=== PATIENT | male | born 1945 | race Caucasian/White ===

== ENCOUNTER → 2024-01-05 | Outpatient (CLI) | payer MEDICARE, BC ==
--- NOTE | 2024-01-05 13:13 | CT ---
EXAMINATION TYPE: CT right knee - [facility] Protocol CT DLP: 844 mGycm, Automated exposure control for dose reduction was used. DATE OF EXAM: 01/05/2024 12:44 PM COMPARISON: None CLINICAL INDICATION:Male, 78 years old with history of M17.11 UNILATERAL PRIMARY OSTEOARTHRITIS, RIGH T KN; PHH, BOB RT knee, primary osteoarthritis. TECHNIQUE: Axial images were obtained of the CT right knee - [facility] Protocol, Additional coronal and sa gittal reformatted images and soft tissue and bone window were obtained for review. . Contrast used: mL of , (None if empty) Oral contrast used: (None if empty) FINDINGS: The visualized portion of the hips demonstrate mild osteoarthrosis changes with osteophyte formation of the acetabulum. No acute intrapelvic process. The bony structures of the pelvis are inta ct. The visualized knee demonstrates osteophyte formation of the tibial plateau, the patella and femoral condyles. There is joint space narrowing and subchondral sclerosis within the medial knee. No eviden ce of fracture. Visualized ankle demonstrates multifocal osteoarthrosis changes with osteophyte formation and mild mundo int space narrowing. No evidence of fractures. IMPRESSION: End-stage osteoarthrosis changes of the medial right knee .
== END | disposition home or self-care (01) ==
LOC: RADCTMAIN 11:24
PROVIDERS: ATTEND Orthopaedic Surgery
DX: M17.11 Unilateral primary osteoarthritis, right knee (principal)

== ENCOUNTER 2024-01-20 14:20 | Inpatient (IN) | payer MEDICARE, BC ==
[2024-01-15 15:10] VITALS: BMI 35.9
[2024-01-20] MEDS: MIDAZOLAM 2 MG/2 ML VIAL IVP ONE (13:41)
[~2024-01-20 14:20] MED LIST: ONDANSETRON 4 MG/2 ML VIAL IVP PRN; TRANEXAMIC 1,000 MG/100ML-NACL 1,000 MG in SALINE 1 100ML.BAG IV PRN; TRANEXAMIC 1,000 MG/100ML-NACL 1,000 MG in SALINE 1 100ML.BAG IVPB PRN
[2024-01-20] MEDS ORDERED: fentaNYL (PF) 50 MCG/ML 2 ML AMP IVP PRN (14:31)
[2024-01-20] MEDS ORDERED: MIDAZOLAM 2 MG/2 ML VIAL IV PRN (14:31)
[2024-01-20] MEDS ORDERED: LIDOCAINE 1% (10MG/ML) FOR IV START INTRADERMA PRN (14:31)
[2024-01-20] MEDS: ACETAMINOPHEN TAB 500 MG TAB PO PRN (14:42)
[2024-01-20] MEDS: oxyCODONE ER 10 MG TAB.ER.12H PO PRN (14:42)
[2024-01-20] MEDS: IV FLUID CONTINUATION 1,000 ML IV ONE (15:00)
[2024-01-20] MEDS: LACTATED RINGERS 1,000 ML IV SCH (15:00)
[2024-01-20 15:04] LABS: Glucose,Whole Blood 103 mg/dL (70-110)
[2024-01-20] MEDS: DOCUSATE 100 MG CAP PO PRN (15:05)
[2024-01-20] MEDS: KETOROLAC 15 MG/ML 1 ML VIAL IVP PRN (15:05)
[2024-01-20] MEDS: ONDANSETRON 4 MG/2 ML VIAL IVP ONE (15:05)
[2024-01-20] MEDS: FAMOTIDINE 20 MG/2 ML VIAL IVP PRN (15:06)
[2024-01-20] MEDS: DEXAMETHASONE SOD PHOSPHATE 10 MG/ML 1 ML VIAL IV PRN (15:06)
--- NOTE | 2024-01-20 16:22 | P.ANPRN ---
Procedure Note - Anesthesia - Nerve Block Performed Right Adductor Canal Single Date of Procedure: 01/20/24 Procedure Start Time: 15:40 Procedure Stop Time: 15:45 Location of Patient: PreOp Indication: Acute Post-Operative Pain, Requested by Surgeon Specifically requested for management of pain by DrEsau: Ezio Ely Sedation Type: Sedate with meaningful contact maintained Preparation: Sterile Prep Position: Supine Needle Types: Pajunk Ultrasound used to visualize needle placement: Yes Ultrasound used to observe medication spread: Yes Injectate: 0.5% Ropivacaine (see comment for volume) (20 cc) Blood Aspirated: No Pain Paresthesia on Injection Noted: No Resistance on Injection: Normal
--- NOTE | 2024-01-20 16:24 | P.ANPRN ---
Procedure Note - Anesthesia - Nerve Block Performed Right Snow Single Date of Procedure: 01/20/24 Procedure Start Time: 15:46 Procedure Stop Time: 15:53 Location of Patient: PreOp Indication: Requested by Surgeon Specifically requested for management of pain by DrEsau: Ezio Ely Sedation Type: Sedate with meaningful contact maintained Preparation: Sterile Prep Position: Supine Needle Types: Pajunk Needle Gauge: 21 Ultrasound used to visualize needle placement: Yes Ultrasound used to observe medication spread: Yes Injectate: 0.5% Ropivacaine (see comment for volume) (20 cc) Blood Aspirated: No Pain Paresthesia on Injection Noted: No Resistance on Injection: Normal Image Stored and Saved: Yes Events: Uneventful and Well Tolerated
[2024-01-20] MEDS ORDERED: PROPOFOL 10 MG/ML 20 ML VIAL IV ONE (16:39)
[2024-01-20] MEDS ORDERED: ROCURONIUM 10 MG/ML (5 ML VIAL) IV ONE (16:39)
[2024-01-20] MEDS ORDERED: SUCCINYLCHOLINE CHLORIDE 200 MG/10 ML VIAL IV ONE (16:39)
[2024-01-20] MEDS ORDERED: MIDAZOLAM 2 MG/2 ML VIAL ONE (16:39)
[2024-01-20] MEDS ORDERED: NEOSTIGMINE 1 MG/ML 10 ML VIAL ONE (16:39)
[2024-01-20] MEDS ORDERED: LIDOCAINE 1% INJ 10MG/ML (20 ML MDV) ONE (16:39)
[2024-01-20] MEDS ORDERED: DEXAMETHASONE SOD PHOSPHATE 4 MG/ML 1 ML VIAL ONE (16:39)
[2024-01-20] MEDS ORDERED: GLYCOPYRROLATE 0.2 MG/ML 2 ML VIAL ONE (16:39)
[2024-01-20] MEDS ORDERED: fentaNYL (PF) 50 MCG/ML 2 ML AMP ONE (16:39)
[2024-01-20] MEDS ORDERED: ROPIVACAINE 5 MG/ML 30 ML VIAL ONE (16:39)
[2024-01-20] MEDS: LACTATED RINGERS 1,000 ML IV ONE (17:25)
[2024-01-20] MEDS: ROPIVACAINE/EPI/CLONIDINE/KET 50 ML SYRINGE MISCELLANE PRN (17:31)
[2024-01-20] MEDS ORDERED: MAGNESIUM HYDROXIDE 2,400 MG/30 ML CUP PO PRN (18:49)
[2024-01-20] MEDS ORDERED: bisacodyL 10 MG SUPP RECTAL PRN (18:49)
[2024-01-20] MEDS ORDERED: NALOXONE 0.4 MG/ML 1 ML VIAL IV PRN (18:49)
[2024-01-20] MEDS ORDERED: HYDROmorphone 0.5 MG/0.5 ML SYRINGE IVP PRN ×2 (18:49)
[2024-01-20] MEDS ORDERED: NA PHOS,M-B/NA PHOS,DI-BA 133 ML ENEMA RECTAL PRN (18:49)
[2024-01-20] MEDS ORDERED: hydrOXYzine pamoate 25 MG CAP PO PRN (18:49)
--- NOTE | 2024-01-20 19:26 | P.OP ---
Date of Procedure: 01/20/24 Postoperative Diagnosis: Severe right knee osteoarthritis Procedure(s) Performed: Same Implants: 1. [employer] CR Femur Size #5 2. [place] [employer] [place] Tibial Base Size #5 3. [employer] CS poly Size #9mm 4. [employer] all poly patella, Size #35 Anesthesia: NANYA, regional Surgeon: Ezio Ely Adult Day Care Worker #1: Kevin Mares Estimated Blood Loss (ml): 100 IV fluids (ml): 800 Pathology: none sent Condition: stable Disposition: PACU Indications for Procedure: I met with the patient preoperatively in the office setting and discussed treatment of their symptomatic knee arthritis. They failed a long course of nonsurgical treatment and elected to proceed with an elective total knee replacement. I discussed the potential risks and complications at length and gave them ample time to ask questions. Risks discussed included: risks from anesthesia, superficial site surgical infection, acute and/or chronic periprosthetic joint infection, delayed wound healing, drainage, wound necrosis, instability, stiffness, stiffness requiring manipulation and/or revision surgery, damage to local blood vessels or nerves, aseptic loosening of the implants, extensor mechanism issues including disruption, patellar maltracking, avascular necrosis etc., continued or worsened knee pain, generalized dissatisfaction with surgical outcome, need for revision surgery, an inability to regain preinjury level of function, DVT, PE, other medical complications, and possibly loss of life or limb. The patient voiced their understanding that while these are the most common complications other less common complications are possible. They provided both their verbal and written consent to go forward with surgery. Operative Findings: Severe knee osteoarthritis Description of Procedure: The patient was identified in preoperative holding and the correct operative extremity was verified and marked with a marker. I reviewed the consent form with the patient at length. All of their questions were answered. The patient was given a block by anesthesia. They were then brought back to the operating room. They were transferred onto the operating room table where a general anesthetic, preoperative antibiotics, and tranexamic acid were administered by anesthesia. A tourniquet was applied to the proximal aspect of the operative extremity. The contralateral extremity was padded under the heel and secured to the operating room table with a nonsterile blue towel and tape. The ipsilateral arm was carefully draped across the patient's chest and secured with a pillow and foam. A post was applied over the lateral aspect of the ipsilateral thigh and a bolster was placed under the ipsilateral foot. I verified that the operative extremity was stable and the knee was flexed to 90. The operative extremity was then placed in a leg blanco, nonsterile drapes were applied, and the extremity was prepped and draped sterilely in the standard sterile fashion. Prior to starting surgery timeout was performed identifying the correct patient, operative extremity, and procedure. The leg was then elevated, exsanguinated with an Esmarch bandage, and the tourniquet was inflated. An anterior midline incision was made sharply with a scalpel. Once I had dissected deep to the superficial fascial layer medial and lateral flaps were elevated. A medial parapatellar arthrotomy was created. Upon opening the knee joint there were diffuse arthritic changes in all 3 compartments. The anterior horn of the medial meniscus were sharply released and a medial release was performed around the posterior medial corner of the knee to facilitate retractor placement. The fat pad was excised with electrocautery. The patella was found to be severely arthritic and a provisional cut was made with a sagittal saw to facilitate mobilization of the extensor mechanism during the procedure. Remnants of the ACL and PCL were then excised from the notch. 4 mm pins were t hen placed within the incision in the medial distal femur and proximal tibia. Arrays were applied to the pins and I verified they were completely tightened. The knee was then registered with the [employer] robot and manipulations in implant position were made to balance the knee and opitmize implant position. Using the Ben robotic saw all cuts were made in accordance with our plan. After all bony fragments had been removed the cuts were verified with the planar probe. The tibia was then subluxed forward and sized. The knee was brought into flexion and a lamina payroll processor was placed to allow removal of the meniscal remnants both medially and laterally as well as posterior osteophytes. Local anesthetic was then infiltrated around the joint capsule. Trial implants were then placed within the knee. Range of motion and collateral ligament tension was then evaluated. Adjustments in implant size and position were then made accordingly. Once the knee was felt to be appropriately balanced the Ben pins were removed. The patella was then recut, sized, and punched. A trial patellar button was then placed. With the trial components in place, the patella tracked midline. The femur was then drilled and the trial component removed. The trial tibial component was then appropriately rotated, pinned, and prepared for the keel. All trial components were then removed from the knee. The knee was thoroughly irrigated with pulsatile lavage. Cement was prepared via vacuum mixing in a bowl on the back table. I then hand pressurized cement into the femur and tibia and placed the implants beginning with the tibial base tray and poly liner, femoral component, and finally the patellar button. All extruded cement was removed including from the pin sites. Once the cement had hardened the knee was evaluated one final time with the final polyethylene liner in place. The knee had full extension and flexion and felt stable to varus and valgus stress throughout the arc of motion. The tourniquet was released and with the tourniquet down the patella tracked midline. All bleeders were controlled with electrocautery. The knee was then soaked for 3 minutes with a dilute Betadine soak. The knee was thoroughly irrigated using 3 L of sterile saline and pulsatile lavage. The extensor mechanism was then reapproximated using pop off Vicryl sutures followed by a running barbed suture. The knee was then closed in layers with a 0 strata fix for the deep fascial layer, 2-0 strata fix for the superficial subcutaneous layer and Monocryl and Steri-Strips for the skin. A sterile dressing was applied. I verified that all instrument, sponge, and sharp counts were correct. The patient was then transferred off the operating room table, extubated, and brought to recovery having tolerated the procedure well. Kevin Mares PA-C was required as a skilled merchandising assistant for patient positioning, draping, exposure, retraction, closure of wound and application of dressing PLAN: The patient can weight-bear as tolerated on the operative extremity. DVT prophylaxis with aspirin 81 mg twice a day based on preoperative risk stratification. Internal medicine for perioperative medical management. 2 doses of post-operative antibiotics. Physical therapy for gait training. Follow-up in the office in 2 weeks for wound check and x-rays of the knee including an AP and lateral.
[2024-01-20] MEDS: HYDROmorphone 0.5 MG/0.5 ML SYRINGE IVP PRN ×2 (19:32→20:03)
--- NOTE | 2024-01-20 20:15 | XR ---
EXAMINATION TYPE: XR knee limited RT DATE OF EXAM: 01/20/2024 8:03 PM CLINICAL INDICATION:Male, 78 years old with history of Evaluation for Postop abnormality and alignmen t; PHH COMPARISON: None. TECHNIQUE: XR knee limited RT; examined in Frontal, lateral and oblique projections. FINDINGS: Status post total knee arthroplasty changes with hardware in appropriate alignment and in tact. No evidence of fracture. Subcutaneous lucencies and lucencies within the joint consistent with surgical changes. IMPRESSION: Status post total knee arthroplasty changes with hardware intact and appropriate alignment. No fractu res identified.
[2024-01-20] MEDS: DEXAMETHASONE SOD PHOSPHATE 4 MG/ML 1 ML VIAL IV ONE (22:35)
[2024-01-20] MEDS: SODIUM CHLORIDE 0.9% 1,000 ML IV SCH (22:59)
[2024-01-20] MEDS: ASPIRIN 81 MG PO SCH (22:59)
[2024-01-20] MEDS: HYDROcodone/APAP 10-325MG 1 EACH TAB PO PRN (23:00)
[2024-01-20] MEDS: SENNOSIDES-DOCUSATE SODIUM 1 EACH TAB PO SCH (23:00)
[2024-01-21 06:05] LABS: Glucose,Whole Blood 175 mg/dL (70-110)
[2024-01-21] MEDS: HYDROmorphone 0.5 MG/0.5 ML SYRINGE IVP PRN (09:46)
--- NOTE | 2024-01-21 09:48 | P.PN ---
Subjective patient is doing well this morning. According to nursing and physical therapy has been doing well. The patient states that he had significant pain after the block or off on his contralateral knee replacement and is worried about pain control this afternoon. Objective - Vital Signs Vital signs: Vital Signs Temp 97.3 F L 01/21/24 07:19 Pulse 60 01/21/24 07:19 Resp 18 01/21/24 07:19 BP 139/77 01/21/24 07:19 Pulse Ox 97 01/21/24 07:19 FiO2 Intake & Output 01/20/24 01/21/24 01/21/24 18:59 06:59 18:59 Intake Total 1450 350 Output Total 100 Balance 1350 350 Weight 100.5 kg 100.5 kg Intake: IV 1450 350 Output: Estimated Blood Loss 100 Other: Voiding Method Toilet # Voids 2 - Exam patient is sitting up at bedside. He is alert and able to answer questions. He is in no apparent distress. Focused exam of the right lower, he was conducted. On inspection there is no intact dressing with no drainage or strike through. There is mild swelling. He has full extension and flexion 210. His thigh and calf are soft. Motor and sensory function are intact throughout the foot. - Labs Labs: Abnormal Lab Results - Last 24 Hours (Table) 01/21/24 Range/Units 06:04 POC Glucose (mg/dL) 175 H (70-110) mg/dL Assessment and Plan Assessment: postoperative day #1 status post right total knee replacement, doing well Plan: 1. Weightbearing as tolerated on the operative extremity. Up with assistance. 2. DVT prophylaxis with aspirin 81 mg twice a day 3. Physical therapy for gait training and mobilization 4. Internal medicine for perioperative medical management 5. PT for gait training 6. Disposition: due to the patient's history of intractable pain following his contralateral knee replacement by another provider we'll plan on seeing how he does today. If he is comfortable and wants to discharge home we will plan on discharge home later this afternoon. If he needs to stay until tomorrow for additional pain control we will keep a mental tomorrow.
[2024-01-21 10:48] LABS: Glucose,Whole Blood 190 mg/dL (70-110)
[2024-01-21 10:48] LABS: Basophils # (A) 0.02 X 10*3/uL (0.00-0.10); Basophils % (A) 0.2 %; Eosinophils # (A) 0 X 10*3/uL (0.04-0.35); Eosinophils % (A) 0 %; HCT 41.9 % (39.6-50.0); HGB 13.7 g/dL (13.0-17.0); Lymphocytes # (A) 0.73 X 10*3/uL (0.90-5.00); Lymphocytes % (A) 6.1 %; MCH 32.2 pg (27.0-32.0); MCHC 32.7 g/dL (32.0-37.0); MCV 98.6 FL (80.0-97.0); Monocytes # (A) 0.43 X 10*3/uL (0.20-1.00); Monocytes % (A) 3.6 %; NRBC Per 100 WBC 0 X 10*3/uL (0.00-0.01); Neutrophils # (A) 10.75 X 10*3/uL (1.80-7.70); Neutrophils % (A) 89.7 %; Platelet Count 157 X 10*3/uL (140-440); RBC 4.25 X 10*6/uL (4.40-5.60); WBC 11.98 X 10*3/uL (4.50-10.00)
[2024-01-21] MEDS ORDERED: DEXTROSE 50% SYRINGE 50 ML IVP PRN ×2 (11:23)
[2024-01-21] MEDS: metFORMIN 500 MG TAB PO SCH (12:48)
[2024-01-21] MEDS: INSULIN ASPART (NovoLOG) 100 UNIT/ML VIAL SQ SCH (12:48)
--- NOTE | 2024-01-21 13:37 | P.HPIM ---
History of Present Illness H&P Date: 01/21/24 History of present illness; patient is a 78-year-old gentleman past medical significant for hypertension, diabetes mellitus who presented to the hospital for elective right total knee arthroplasty. Patient has been following up outpatient with orthopedics for his right knee pain. Patient has been dealing with this pain for the last 4 years. Patient has tried all conservative measures but that have failed. Orthopedic discussed with patient and he decided to proceed with right total knee arthroplasty for which he presented to hospital on 01/19. Postoperatively internal medicine team were consulted for medical management REVIEW OF SYSTEMS: CONSTITUTIONAL: No fever, no malaise, no fatigue. HEENT: No recent visual problems or hearing problems. Denied any sore throat. CARDIOVASCULAR: No chest pain, orthopnea, PND, no palpitations, no syncope. PULMONARY: No shortness of breath, no cough, no hemoptysis. GASTROINTESTINAL: No diarrhea, no nausea, no vomiting, no abdominal pain. NEUROLOGICAL: No headaches, no weakness, no numbness. HEMATOLOGICAL: Denies any bleeding or petechiae. GENITOURINARY: Denies any burning micturition, frequency, or urgency. MUSCULOSKELETAL/RHEUMATOLOGICAL: Right knee pain ENDOCRINE: Denies any polyuria or polydipsia. The rest of the 14-point review of systems is negative. PHYSICAL EXAMINATION: GENERAL: The patient is alert and oriented x3, not in any acute distress. Well developed, well nourished. HEENT: Pupils are round and equally reacting to light. EOMI. No scleral icterus. No conjunctival pallor. Normocephalic, atraumatic. No pharyngeal erythema. No thyromegaly. CARDIOVASCULAR: S1 and S2 present. No murmurs, rubs, or gallops. PULMONARY: Chest is clear to auscultation, no wheezing or crackles. ABDOMEN: Soft, nontender, nondistended, normoactive bowel sounds. No palpable organomegaly. MUSCULOSKELETAL: Right knee surgical incision seen EXTREMITIES: No cyanosis, clubbing, or pedal edema. NEUROLOGICAL: Gross neurological examination did not reveal any focal deficits. SKIN: No rashes. Assessment and plan Right knee osteoarthritis status post right total knee arthroplasty Hypertension Diabetes mellitus Monitor vital signs Encourage use of I-S Continue pain management per orthopedics Continue DVT prophylaxis per orthopedics Resume home meds PT and OT consulted Orthopedic following Labs and medication were reviewed.. Continue same treatment. Continue with symptomatic treatment. Resume home medication. Monitor labs and vitals. DVT and GI prophylaxis. Further recommendations as per clinical course of the patie nt Dictation was produced using [employer] dictation software. please excuse any grammatical, word or spelling errors. Past Medical History Past Medical History: Diabetes Mellitus, Hypertension, Pneumonia, Sleep Apnea/CPAP/BIPAP Additional Past Medical History / Comment(s): pre-diabetic, skin cancer, History of Any Multi-Drug Resistant Organisms: None Reported Past Surgical History: Joint Replacement, Orthopedic Surgery Additional Past Surgical History / Comment(s): R shoulder surgery, 3 knee arthroscopies on rt and 2 knee arthroscopies on lt, left knee replacement Past Anesthesia/Blood Transfusion Reactions: No Reported Reaction Past Psychological History: No Psychological Hx Reported Smoking Status: Never smoker Past Alcohol Use History: Occasional Past Drug Use History: None Reported - Past Family History Mother Family Medical History: Cancer Additional Family Medical History / Comment(s): lung cancer Father Family Medical History: CVA/TIA, Diabetes Mellitus, Hypertension Medications and Allergies Home Medications Medication Instructions Recorded Confirmed Type Losartan [Cozaar] 50 mg PO HS 12/19/13 01/20/24 History Acetaminophen [Tylenol] 650 mg PO QID PRN 01/15/24 01/20/24 History Cholecalciferol [Vitamin D3 (25 25 mcg PO DAILY 01/15/24 01/15/24 History Mcg = 1000 Iu)] Ibuprofen [Motrin] 800 mg PO BID PRN 01/15/24 01/15/24 History Multivitamins, Thera [Multivitamin 1 tab PO DAILY 01/15/24 01/15/24 History (formulary)] metFORMIN HCL 500 mg PO BID 01/15/24 01/20/24 History Aspirin 81 mg PO BID #60 tab 01/20/24 Rx Diclofenac Sodium [Voltaren] 75 mg PO BID #60 tab 01/20/24 Rx HYDROcodone/APAP 5-325MG [Tobyhanna 5] 1 each PO Q6HR PRN #32 tab 01/20/24 Rx Omeprazole 20 mg PO DAILY #30 tab 01/20/24 Rx Ondansetron [Zofran] 4 mg PO Q6HR PRN #30 tab 01/20/24 Rx Sennosides-Docusate Sodium 1 tab PO BID PRN #60 tablet 01/20/24 Rx [Senokot-S] Allergies Allergy/AdvReac Type Severity Reaction Status Date / Time No Known Allergies Allergy Verified 01/20/24 14:40 Physical Exam Vitals: Vital Signs Temp Pulse Pulse Resp BP Pulse Ox 01/21/24 07:19 97.3 F L 60 18 139/77 97 01/21/24 01:35 97.5 F L 61 18 139/68 96 01/20/24 21:27 97.8 F 68 18 153/65 01/20/24 21:10 63 16 133/75 98 01/20/24 20:50 62 16 137/62 97 01/20/24 20:35 63 16 126/58 97 01/20/24 20:20 60 16 136/61 99 01/20/24 20:05 64 16 127/83 98 01/20/24 19:50 67 18 130/60 95 01/20/24 19:35 64 16 129/64 93 L 01/20/24 19:20 84 16 121/56 98 01/20/24 19:05 85 15 142/65 97 01/20/24 15:55 58 L 16 138/66 95 01/20/24 14:38 97.4 F L 63 18 170/73 97 Intake and Output 01/20/24 01/21/24 01/21/24 22:59 06:59 14:59 Intake Total 1800 Output Total 100 Balance 1700 Intake: IV 1800 Output: Estimated Blood Loss 100 Other: Voiding Method Toilet Toilet # Voids 2 Weight 100.5 kg Results CBC & Chem 7: 01/21/24 06:42 Labs: Abnormal Lab Results - Last 24 Hours (Table) 01/21/24 01/21/24 01/21/24 Range/Units 06:04 06:42 10:45 WBC 11.98 H (4.50-10.00) X 10*3/uL RBC 4.25 L (4.40-5.60) X 10*6/uL MCV 98.6 H (80.0-97.0) FL MCH 32.2 H (27.0-32.0) pg Immature Gran # 0.05 H (0.00-0.04) X 10*3/uL Neutrophils # 10.75 H (1.80-7.70) X 10*3/uL Lymphocytes # 0.73 L (0.90-5.00) X 10*3/uL Eosinophils # 0 L (0.04-0.35) X 10*3/uL POC Glucose (mg/dL) 175 H 190 H (70-110) mg/dL Thrombosis Risk Factor Assmnt - Choose All That Apply Any of the Below Risk Factors Present?: Yes Each Factor Represents 1 point: Obesity (BMI >25) Other Risk Factors: Yes Each Risk Factor Represents 3 Points: Age 75 years or older Other congenital or acquired thrombophilia - If yes, enter type in comment: No Thrombosis Risk Factor Assessment Total Risk Factor Score: 4 Thrombosis Risk Factor Assessment Level: Moderate Risk
[2024-01-21 16:44] LABS: Glucose,Whole Blood 163 mg/dL (70-110)
[2024-01-21] MEDS ORDERED: oxyCODONE-APAP 5-325MG 1 EACH TAB PO PRN (18:48)
[2024-01-21] MEDS: LOSARTAN 50 MG TAB PO SCH (20:31)
[2024-01-21 20:48] LABS: Glucose,Whole Blood 171 mg/dL (70-110)
[2024-01-21] MEDS ORDERED: metFORMIN 500 MG TAB PO SCH (21:00)
[2024-01-21] MEDS: oxyCODONE-APAP 5-325MG 1 EACH TAB PO PRN (23:15)
[2024-01-22 05:58] LABS: Glucose,Whole Blood 130 mg/dL (70-110)
--- NOTE | 2024-01-22 10:28 | P.CONS ---
History of Present Illness - Reason for Consult Consult date: 01/21/24 Medical management - History of Present Illness History of present illness; patient is a 78-year-old gentleman past medical significant for hypertension, diabetes mellitus who presented to the hospital for elective right total knee arthroplasty. Patient has been following up outpatient with orthopedics for his right knee pain. Patient has been dealing with this pain for the last 4 years. Patient has tried all conservative measures but that have failed. Orthopedic discussed with patient and he decided to proceed with right total knee arthroplasty for which he presented to hospital on 01/19. Postoperatively internal medicine team were consulted for medical management REVIEW OF SYSTEMS: CONSTITUTIONAL: No fever, no malaise, no fatigue. HEENT: No recent visual problems or hearing problems. Denied any sore throat. CARDIOVASCULAR: No chest pain, orthopnea, PND, no palpitations, no syncope. PULMONARY: No shortness of breath, no cough, no hemoptysis. GASTROINTESTINAL: No diarrhea, no nausea, no vomiting, no abdominal pain. NEUROLOGICAL: No headaches, no weakness, no numbness. HEMATOLOGICAL: Denies any bleeding or petechiae. GENITOURINARY: Denies any burning micturition, frequency, or urgency. MUSCULOSKELETAL/RHEUMATOLOGICAL: Right knee pain ENDOCRINE: Denies any polyuria or polydipsia. The rest of the 14-point review of systems is negative. PHYSICAL EXAMINATION: GENERAL: The patient is alert and oriented x3, not in any acute distress. Well developed, well nourished. HEENT: Pupils are round and equally reacting to light. EOMI. No scleral icterus. No conjunctival pallor. Normocephalic, atraumatic. No pharyngeal erythema. No thyromegaly. CARDIOVASCULAR: S1 and S2 present. No murmurs, rubs, or gallops. PULMONARY: Chest is clear to auscultation, no wheezing or crackles. ABDOMEN: Soft, nontender, nondistended, normoactive bowel sounds. No palpable organomegaly. MUSCULOSKELETAL: Right knee surgical incision seen EXTREMITIES: No cyanosis, clubbing, or pedal edema. NEUROLOGICAL: Gross neurological examination did not reveal any focal deficits. SKIN: No rashes. Assessment and plan Right knee osteoarthritis status post right total knee arthroplasty Hypertension Diabetes mellitus Monitor vital signs Encourage use of I-S Continue pain management per orthopedics Continue DVT prophylaxis per orthopedics Resume home meds PT and OT consulted Orthopedic following Labs and medication were reviewed.. Continue same treatment. Continue with symptomatic treatment. Resume home medication. Monitor labs and vitals. DVT and GI prophylaxis. Further recommendations as per clinical course of the patient Dictation was produced using [employer] dictation software. please excuse any grammatical, word or spelling errors. Past Medical History Past Medical History: Diabetes Mellitus, Hypertension, Pneumonia, Sleep Apnea/CPAP/BIPAP Additional Past Medical History / Comment(s): pre-diabetic, skin cancer, History of Any Multi-Drug Resistant Organisms: None Reported Past Surgical History: Joint Replacement, Orthopedic Surgery Additional Past Surgical History / Comment(s): R shoulder surgery, 3 knee arthroscopies on rt and 2 knee arthroscopies on lt, left knee replacement Past Anesthesia/Blood Transfusion Reactions: No Reported Reaction Past Psychological History: No Psychological Hx Reported Smoking Status: Never smoker Past Alcohol Use History: Occasional Past Drug Use History: None Reported - Past Family History Mother Family Medical History: Cancer Additional Family Medical History / Comment(s): lung cancer Father Family Medical History: CVA/TIA, Diabetes Mellitus, Hypertension Medications and Allergies Home Medications Medication Instructions Recorded Confirmed Type Losartan [Cozaar] 50 mg PO HS 12/19/13 01/20/24 History Acetaminophen [Tylenol] 650 mg PO QID PRN 01/15/24 01/20/24 History Cholecalciferol [Vitamin D3 (25 25 mcg PO DAILY 01/15/24 01/15/24 History Mcg = 1000 Iu)] Ibuprofen [Motrin] 800 mg PO BID PRN 01/15/24 01/15/24 History Multivitamins, Thera [Multivitamin 1 tab PO DAILY 01/15/24 01/15/24 History (formulary)] metFORMIN HCL 500 mg PO BID 01/15/24 01/20/24 History Aspirin 81 mg PO BID #60 tab 01/20/24 Rx Diclofenac Sodium [Voltaren] 75 mg PO BID #60 tab 01/20/24 Rx HYDROcodone/APAP 5-325MG [[place] 5] 1 each PO Q6HR PRN #32 tab 01/20/24 Rx Omeprazole 20 mg PO DAILY #30 tab 01/20/24 Rx Ondansetron [Zofran] 4 mg PO Q6HR PRN #30 tab 01/20/24 Rx Sennosides-Docusate Sodium 1 tab PO BID PRN #60 tablet 01/20/24 Rx [Senokot-S] Allergies Allergy/AdvReac Type Severity Reaction Status Date / Time No Known Allergies Allergy Verified 01/20/24 14:40 Physical Exam Vitals: Vital Signs Temp Pulse Pulse Resp BP Pulse Ox 01/22/24 07:13 98.8 F 66 16 110/59 96 01/22/24 01:04 98.7 F 67 16 132/68 97 01/21/24 18:24 97.3 F L 57 L 18 144/74 100 01/21/24 14:00 98 F 53 L 20 132/54 99 01/21/24 13:49 98.0 F 53 L 18 132/54 99 Intake and Output 01/21/24 01/22/24 01/22/24 22:59 06:59 14:59 Other: Voiding Method Toilet # Voids 2 2 Results CBC & Chem 7: 01/21/24 06:42 Labs: Abnormal Lab Results - Last 24 Hours (Table) 01/21/24 01/21/24 01/21/24 Range/Units 06:42 10:45 16:43 WBC 11.98 H (4.50-10.00) X 10*3/uL RBC 4.25 L (4.40-5.60) X 10*6/uL MCV 98.6 H (80.0-97.0) FL MCH 32.2 H (27.0-32.0) pg Immature Gran # 0.05 H (0.00-0.04) X 10*3/uL Neutrophils # 10.75 H (1.80-7.70) X 10*3/uL Lymphocytes # 0.73 L (0.90-5.00) X 10*3/uL Eosinophils # 0 L (0.04-0.35) X 10*3/uL POC Glucose (mg/dL) 190 H 163 H (70-110) mg/dL 01/21/24 01/22/24 Range/Units 20:47 05:56 WBC (4.50-10.00) X 10*3/uL RBC (4.40-5.60) X 10*6/uL MCV (80.0-97.0) FL MCH (27.0-32.0) pg Immature Gran # (0.00-0.04) X 10*3/uL Neutrophils # (1.80-7.70) X 10*3/uL Lymphocytes # (0.90-5.00) X 10*3/uL Eosinophils # (0.04-0.35) X 10*3/uL POC Glucose (mg/dL) 171 H 130 H (70-110) mg/dL
--- NOTE | 2024-01-22 10:53 | P.PN ---
Subjective patient states he was doing well until last night when his block wore off. he has had significant pain since that time. He is unsure if the Percocet and Dilaudid are helping. At the time of evaluation he is sitting up at bedside in minimal distress.. Objective - Vital Signs Vital signs: Vital Signs Temp 98.8 F 01/22/24 07:13 Pulse 66 01/22/24 07:13 Resp 16 01/22/24 07:13 BP 110/59 01/22/24 07:13 Pulse Ox 96 01/22/24 07:13 FiO2 Intake & Output 01/21/24 01/22/24 01/22/24 18:59 06:59 18:59 Other: Voiding Method Toilet Toilet # Voids 2 2 - Exam He is sitting up at bedside. He is alert and able to answer questions. He is in no obvious distress. A focused exam of the right leg was conducted. His surgical dressing is intact with no drainage or strike through. There is mild swelling throughout the leg. The thigh and calf are soft. He is able to actively plantarflex and dorsiflex his ankle and his toes. - Labs CBC & Chem 7: 01/21/24 06:42 Labs: Abnormal Lab Results - Last 24 Hours (Table) 01/21/24 01/21/24 01/22/24 Range/Units 16:43 20:47 05:56 POC Glucose (mg/dL) 163 H 171 H 130 H (70-110) mg/dL Assessment and Plan Assessment: postoperative day #2 status post right total knee arthroplasty Plan: DD treatment as outlined yesterday. Both the patient and his state they're not surprised he is having issues with pain control as he has a "very low pain tolerance". We'll plan on keeping the patient until tomorrow to continue working towards pain control. He was encouraged to aggressively ice and elevate his leg. We will reassess him tomorrow morning and likely discharge home at that time.
[2024-01-22] MEDS: SENNOSIDES-DOCUSATE SODIUM 1 EACH TAB PO SCH (11:06)
[2024-01-22] MEDS: polyethylene glycoL 3350 17 GM POWD.PACK PO SCH (11:07)
[2024-01-22 12:02] LABS: Glucose,Whole Blood 96 mg/dL (70-110)
--- NOTE | 2024-01-22 13:02 | P.PN ---
Subjective Progress Note Date: 01/22/24 patient is a 78-year-old gentleman past medical significant for hypertension, diabetes mellitus who presented to the hospital for elective right total knee arthroplasty. Patient has been following up outpatient with orthopedics for his right knee pain. Patient has been dealing with this pain for the last 4 years. Patient has tried all conservative measures but that have failed. Orthopedic discussed with patient and he decided to proceed with right total knee arthroplasty for which he presented to hospital on 01/19. Postoperatively internal medicine team were consulted for medical management 01/21. Patient seen and examined. Complaining of constipation. Complaining of persistent pain in right knee. REVIEW OF SYSTEMS: CONSTITUTIONAL: No fever, no malaise,. CARDIOVASCULAR: No chest pain, no palpitations, no syncope. PULMONARY: No shortness of breath, no cough, GASTROINTESTINAL: No diarrhea, no nausea, no vomiting, no abdominal pain. NEUROLOGICAL: No headaches, no weakness, PHYSICAL EXAMINATION: GENERAL: The patient is alert and oriented x3, not in any acute distress. Well developed, well nourished. HEENT: Pupils are round and equally reacting to light. EOMI. No scleral icterus. No conjunctival pallor. Normocephalic, atraumatic. No pharyngeal erythema. No thyromegaly. CARDIOVASCULAR: S1 and S2 present. No murmurs, rubs, or gallops. PULMONARY: Chest is clear to auscultation, no wheezing or crackles. ABDOMEN: Soft, nontender, nondistended, normoactive bowel sounds. No palpable organomegaly. MUSCULOSKELETAL: Right knee surgical incision seen EXTREMITIES: No cyanosis, clubbing, or pedal edema. NEUROLOGICAL: Gross neurological examination did not reveal any focal deficits. SKIN: No rashes. Assessment and plan Right knee osteoarthritis status post right total knee arthroplasty Hypertension Diabetes mellitus Monitor vital signs Encourage use of I-S Continue metformin Continue losartan Continue pain management per orthopedics Continue DVT prophylaxis per orthopedics Aggressive bowel regimen PT and OT following Orthopedic following Labs and medication were reviewed.. Continue same treatment. Continue with symptomatic treatment. Resume home medication. Monitor labs and vitals. DVT and GI prophylaxis. Further recommendations as per clinical course of the patient Dictation was produced using [employer] dictation software. please excuse any grammatical, word or spelling errors. Objective - Vital Signs Vital signs: Vital Signs Temp 98.8 F 01/22/24 07:13 Pulse 66 01/22/24 07:13 Resp 16 01/22/24 07:13 BP 110/59 01/22/24 07:13 Pulse Ox 96 01/22/24 07:13 FiO2 Intake & Output 01/21/24 01/22/24 01/22/24 18:59 06:59 18:59 Other: Voiding Method Toilet Toilet # Voids 2 2 - Labs CBC & Chem 7: 01/21/24 06:42 Labs: Abnormal Lab Results - Last 24 Hours (Table) 01/21/24 01/21/24 01/21/24 Range/Units 06:42 10:45 16:43 WBC 11.98 H (4.50-10.00) X 10*3/uL RBC 4.25 L (4.40-5.60) X 10*6/uL MCV 98.6 H (80.0-97.0) FL MCH 32.2 H (27.0-32.0) pg Immature Gran # 0.05 H (0.00-0.04) X 10*3/uL Neutrophils # 10.75 H (1.80-7.70) X 10*3/uL Lymphocytes # 0.73 L (0.90-5.00) X 10*3/uL Eosinophils # 0 L (0.04-0.35) X 10*3/uL POC Glucose (mg/dL) 190 H 163 H (70-110) mg/dL 01/21/24 01/22/24 Range/Units 20:47 05:56 WBC (4.50-10.00) X 10*3/uL RBC (4.40-5.60) X 10*6/uL MCV (80.0-97.0) FL MCH (27.0-32.0) pg Immature Gran # (0.00-0.04) X 10*3/uL Neutrophils # (1.80-7.70) X 10*3/uL Lymphocytes # (0.90-5.00) X 10*3/uL Eosinophils # (0.04-0.35) X 10*3/uL POC Glucose (mg/dL) 171 H 130 H (70-110) mg/dL
[2024-01-22 16:43] LABS: Glucose,Whole Blood 135 mg/dL (70-110)
[2024-01-22 20:32] LABS: Glucose,Whole Blood 147 mg/dL (70-110)
[2024-01-23 05:42] LABS: Glucose,Whole Blood 127 mg/dL (70-110)
[2024-01-23 07:58] VITALS: BP 145/76; PULSE 63; RESP 18; TEMP 98.6
[2024-01-23] MEDS: HYDROcodone/APAP 5-325MG 1 EACH TAB PO PRN (08:16)
--- NOTE | 2024-01-23 08:39 | P.DS ---
Providers Date of admission: 01/22/24 14:02 Attending physician: Ezio Ely Consults: 01/20/24 18:49 Consult Physician Stat Consulting Provider: Douglas Collins Reason/Comments: MEDICAL MANAGEMENT Do you want consulting provider notified?: Yes Primary care physician: Douglas Collins [facility] Course: The patient is a very pleasant 78-year-old male who underwent a right total knee replacement on Thursday. Following an uncomplicated surgery was transferred to the orthopedic floor in stable condition. He received 2 doses of postoperative antibiotics. He was transitioned from IV to oral pain medication. He was seen by internal medicine who assisted with his perioperative medical management. He worked with physical therapy. He was kept for an additional 2 days for pain control. The patient was seen on postoperative day #3 and was doing well. His pain was relatively well controlled. His exam was benign. He was ultimately cleared for discharge home. Plan - Discharge Summary Discharge Rx Participant: Yes New Discharge Prescriptions: New Sennosides-Docusate Sodium [Senokot-S] 1 tab PO BID PRN #60 tablet PRN Reason: Constipation Diclofenac Sodium [Voltaren] 75 mg PO BID #60 tab Ondansetron [Zofran] 4 mg PO Q6HR PRN #30 tab PRN Reason: Nausea oxyCODONE HCL/ACETAMINOPHEN [Percocet 5-325 mg] 1 - 2 tab PO Q6HR PRN #32 tab PRN Reason: Pain Aspirin 81 mg PO BID #60 tab Omeprazole 20 mg PO DAILY #30 tab No Action Losartan [Cozaar] 50 mg PO HS Multivitamins, Thera [Multivitamin (formulary)] 1 tab PO DAILY Cholecalciferol [Vitamin D3 (25 Mcg = 1000 Iu)] 25 mcg PO DAILY metFORMIN HCL 500 mg PO BID Acetaminophen [Tylenol] 650 mg PO QID PRN PRN Reason: Pain Ibuprofen [Motrin] 800 mg PO BID PRN PRN Reason: Pain Discharge Medication List Losartan [Cozaar] 50 mg PO HS 12/19/13 [History] Acetaminophen [Tylenol] 650 mg PO QID PRN 01/15/24 [History] Cholecalciferol [Vitamin D3 (25 Mcg = 1000 Iu)] 25 mcg PO DAILY 01/15/24 [History] Ibuprofen [Motrin] 800 mg PO BID PRN 01/15/24 [History] Multivitamins, Thera [Multivitamin (formulary)] 1 tab PO DAILY 01/15/24 [History] metFORMIN HCL 500 mg PO BID 01/15/24 [History] Aspirin 81 mg PO BID #60 tab 01/20/24 [Rx] Diclofenac Sodium [Voltaren] 75 mg PO BID #60 tab 01/20/24 [Rx] Omeprazole 20 mg PO DAILY #30 tab 01/20/24 [Rx] Ondansetron [Zofran] 4 mg PO Q6HR PRN #30 tab 01/20/24 [Rx] Sennosides-Docusate Sodium [Senokot-S] 1 tab PO BID PRN #60 tablet 01/20/24 [Rx] oxyCODONE HCL/ACETAMINOPHEN [Percocet 5-325 mg] 1 - 2 tab PO Q6HR PRN #32 tab 01/23/24 [Rx] Follow up Appointment(s)/Referral(s): [facility] [NON-STAFF] - As Needed Ezio Ely MD [Medical Doctor] - 2 Weeks Activity/Diet/Wound Care/Special Instructions: 1. Weight bear as tolerated on your operative extremity, use a walker or cane to ambulate. 2. Leave surgical dressing in place until your follow-up appointment. It is okay to shower 48 hours after surgery but do not soak your leg 3. Take pain medications as prescribed. 4. Take Aspirin 81 mg twice a day for blood clot prevention. 5. Follow-up in the office in 2 weeks for your first postoperative appointment. Please call the office for any concerns. Discharge Disposition: HOME WITH HOME HEALTH SERVICES
[2024-01-23 09:27] LABS: Basophils # (A) 0.05 X 10*3/uL (0.00-0.10); Basophils % (A) 0.5 %; Eosinophils # (A) 0.13 X 10*3/uL (0.04-0.35); Eosinophils % (A) 1.4 %; HGB 12.1 g/dL (13.0-17.0); Lymphocytes # (A) 1.91 X 10*3/uL (0.90-5.00); Lymphocytes % (A) 20.6 %; MCHC 33.6 g/dL (32.0-37.0); MCV 98.1 FL (80.0-97.0); Mean Platelet Volume 10.9 FL (9.5-12.2); Monocytes # (A) 1.34 X 10*3/uL (0.20-1.00); Monocytes % (A) 14.5 %; NRBC Per 100 WBC 0 X 10*3/uL (0.00-0.01); Neutrophils % (A) 62.7 %; Platelet Count 134 X 10*3/uL (140-440); RBC 3.67 X 10*6/uL (4.40-5.60); RDW 13.2 % (11.5-14.5); WBC 9.26 X 10*3/uL (4.50-10.00)
--- NOTE | 2024-01-23 12:38 | P.PN ---
Subjective Progress Note Date: 01/23/24 patient is a 78-year-old gentleman past medical significant for hypertension, diabetes mellitus who presented to the hospital for elective right total knee arthroplasty. Patient has been following up outpatient with orthopedics for his right knee pain. Patient has been dealing with this pain for the last 4 years. Patient has tried all conservative measures but that have failed. Orthopedic discussed with patient and he decided to proceed with right total knee arthroplasty for which he presented to hospital on 01/19. Postoperatively internal medicine team were consulted for medical management 01/21. Patient seen and examined. Complaining of constipation. Complaining of persistent pain in right knee. 01/22. Patient seen and examined. State he is ready to go home. Orthopedic has put in the discharge orders. REVIEW OF SYSTEMS: CONSTITUTIONAL: No fever, no malaise,. CARDIOVASCULAR: No chest pain, no palpitations, no syncope. PULMONARY: No shortness of breath, no cough, GASTROINTESTINAL: No diarrhea, no nausea, no vomiting, no abdominal pain. NEUROLOGICAL: No headaches, no weakness, PHYSICAL EXAMINATION: GENERAL: The patient is alert and oriented x3, not in any acute distress. Well developed, well nourished. HEENT: Pupils are round and equally reacting to light. EOMI. No scleral icterus. No conjunctival pallor. Normocephalic, atraumatic. No pharyngeal erythema. No thyromegaly. CARDIOVASCULAR: S1 and S2 present. No murmurs, rubs, or gallops. PULMONARY: Chest is clear to auscultation, no wheezing or crackles. ABDOMEN: Soft, nontender, nondistended, normoactive bowel sounds. No palpable organomegaly. MUSCULOSKELETAL: Right knee surgical incision seen EXTREMITIES: No cyanosis, clubbing, or pedal edema. NEUROLOGICAL: Gross neurological examination did not reveal any focal deficits. SKIN: No rashes. Assessment and plan Right knee osteoarthritis status post right total knee arthroplasty Hypertension Diabetes mellitus Monitor vital signs Encourage use of I-S Continue metformin Continue losartan Continue pain management per orthopedics Continue DVT prophylaxis per orthopedics Aggressive bowel regimen PT and OT following Orthopedic following Patient is medically stable for discharge Labs and medication were reviewed.. Continue same treatment. Continue with symptomatic treatment. Resume home medication. Monitor labs and vitals. DVT and GI prophylaxis. Further recommendations as per clinical course of the patient Dictation was produced using [employer] software. please excuse any grammatical, word or spelling errors. Objective - Vital Signs Vital signs: Vital Signs Temp 98.6 F 01/23/24 07:57 Pulse 63 01/23/24 07:57 Resp 18 01/23/24 07:57 BP 145/76 01/23/24 07:57 Pulse Ox 92 L 01/23/24 07:57 FiO2 Intake & Output 01/22/24 01/23/24 01/23/24 18:59 06:59 18:59 Other: Voiding Method Toilet Toilet # Voids 4 - Labs CBC & Chem 7: 01/23/24 03:46 Labs: Abnormal Lab Results - Last 24 Hours (Table) 01/22/24 01/22/24 01/23/24 Range/Units 16:42 20:30 03:46 RBC 3.67 L (4.40-5.60) X 10*6/uL Hgb 12.1 L (13.0-17.0) g/dL Hct 36.0 L (39.6-50.0) % MCV 98.1 H (80.0-97.0) FL MCH 33.0 H (27.0-32.0) pg Plt Count 134 L (140-440) X 10*3/uL Monocytes # 1.34 H (0.20-1.00) X 10*3/uL POC Glucose (mg/dL) 135 H 147 H (70-110) mg/dL 01/23/24 Range/Units 05:40 RBC (4.40-5.60) X 10*6/uL Hgb (13.0-17.0) g/dL Hct (39.6-50.0) % MCV (80.0-97.0) FL MCH (27.0-32.0) pg Plt Count (140-440) X 10*3/uL Monocytes # (0.20-1.00) X 10*3/uL POC Glucose (mg/dL) 127 H (70-110) mg/dL
== END 2024-01-23 11:12 | disposition home health service (06) | DRG 470 ==
LOC: OR 14:20 → 4SSUR 19:15 → OR 01-22 14:02 → 4SSUR 01-22 14:02
PROVIDERS: ADMIT Orthopaedic Surgery; ATTEND Orthopaedic Surgery
PROC: 8E0 Other Procedures, Physiological Systems and Anatomical Regions, Other Procedures (ICD-10-PCS; 2024-01-20)
PROC: 0SRC0J9 Replacement of Right Knee Joint with Synthetic Substitute, Cemented, Open Approach (ICD-10-PCS; principal; 2024-01-20 15:45)
DX: M17.11 Unilateral primary osteoarthritis, right knee (principal); E11.9 Type 2 diabetes mellitus without complications; I10 Essential (primary) hypertension; Z96.652 Presence of left artificial knee joint; K59.00 Constipation, unspecified; Z79.82 Long term (current) use of aspirin; Z79.84 Long term (current) use of oral hypoglycemic drugs; Z85.828 Personal history of other malignant neoplasm of skin
CPT/HCPCS: 64447; 64999; 83036; 85025

== ENCOUNTER → 2024-01-28 | Outpatient (CLI) | payer MEDICARE, BC ==
--- NOTE | 2024-01-28 12:13 | US ---
EXAMINATION TYPE: US venous doppler duplex LE RT DATE OF EXAM: 01/28/2024 10:57 AM COMPARISON: NONE CLINICAL INDICATION: Male, 78 years old with history of I82.401 ACUTE EMBOLISM AND THOMBOS UNSP DEEP VEINS; Right leg pain and swelling s/p total knee 1 week ago SIDE PERFORMED: Right TECHNIQUE: The lower extremity deep venous system is examined utilizing real time linear array sonog opal with graded compression, doppler sonography and color-flow sonography. VESSELS IMAGED: Common Femoral Vein Deep Femoral Vein Greater Saphenous Vein * Femoral Vein Popliteal Vein Small Saphenous Vein * Proximal Calf Veins (* superficial vessels) Right Leg: Negative for DVT, complex collection within right pop fossa= 6.2 x 1.2 x 3.5 cm Attempted to call results, no answer on Dr cell phone or office IMPRESSION: 1. No evidence of DVT from the right common femoral vein to the proximal calf veins. 2. 6.2 cm complex fluid collection in the right popliteal fossa
== END | disposition home or self-care (01) ==
LOC: RADUSWWP 10:27
PROVIDERS: ATTEND Family Medicine
DX: I82.401 Acute embolism and thrombosis of unspecified deep veins of right lower extremity (principal)